=== PATIENT | female | born 1955 | race Caucasian/White ===

== ENCOUNTER 2021-06-20 13:12 | Emergency (ER) | payer OTHER, MEDICAID ==
[2021-06-20 13:41] LABS: HEMOGLOBIN 14.1 gm/dl (12.3-15.3); RED BLOOD COUNT 4.47 M/UL (4.00-5.10)
[2021-06-20 14:09] LABS: BUN/CREATININE RATIO 15 (0-10)
== END 2021-06-20 16:15 | disposition home or self-care (01) ==
LOC: ER1 13:12
PROVIDERS: Nurse Practitioner
DX: Z04.3 Encounter for examination and observation following other accident (principal); M54.9 Dorsalgia, unspecified; M54.2 Cervicalgia; Z88.0 Allergy status to penicillin; F17.210 Nicotine dependence, cigarettes, uncomplicated; I10 Essential (primary) hypertension; J44.9 Chronic obstructive pulmonary disease, unspecified
CPT/HCPCS: 70450; 72125; 72128; 72131; 80053; 85025; 96374; 96375; 99284; J2270; J2405; J2550